=== PATIENT | female | born 1975 | race Caucasian/White ===

== ENCOUNTER → 2017-03-23 | Outpatient (CLI) | payer OTHER ==
[~2017-03-23] MED LIST: BARIUM SUSPENSION 105% (LIQUID POLIBAR PLUS) 240 ML/DOSE PO ONE; BARIUM SUSPENSION 60% (LIQUID EZ PAQUE) 240 ML DOSE PO ONE; ESCT10T PO; HYDR-3454 PO; LIRA0.6P SQ; OMEP20TA2 PO; SCR1T1 PO
--- NOTE | 2017-03-23 11:05 | Diagnostic Imaging Report ---
EXAMINATION: Barium swallow double-contrast. INDICATION: Dysphagia Fluoroscopy time: 59 seconds TECHNIQUE: Ed Tech image of the chest was performed. Subsequently, the patient was given gas forming granules for oral ingestion followed by thick and thin barium to drink. Swallowing through the esophagus was observed with fluoroscopy and overhead images, as well as multiple spot images in the upright and prone positions, were taken. FINDINGS: Ed Tech image of the chest demonstrate no significant abnormality. No significant reflux is seen during the study. Normal motility seen. The esophagus is normal in caliber and contour. There is no mucosal abnormality, diverticulum or filling defect to suggest a mass. There is no hiatal hernia demonstrated. IMPRESSION: Unremarkable barium swallow. Dictated by: Dictated on workstation # [id number]
== END ==
LOC: RAD 09:52
PROVIDERS: ATTEND Family Medicine
DX: R07.89 Other chest pain (principal)
CPT/HCPCS: 74220

== ENCOUNTER 2019-02-21 10:30 | Outpatient (CLI) | payer OTHER ==
[~2019-02-21] VITALS: Ht 167.6 cm; Wt 97.5 kg
[~2019-02-21 10:30] MED LIST changes: -BARIUM SUSPENSION 105% (LIQUID POLIBAR PLUS) 240 ML/DOSE PO ONE; -BARIUM SUSPENSION 60% (LIQUID EZ PAQUE) 240 ML DOSE PO ONE
[2019-02-21] MEDS ORDERED: LEVO50TA6 PO (11:50)
[2019-02-21] MEDS ORDERED: NORG1TAB14 PO (11:50)
[2019-02-21] MEDS ORDERED: ATOR20TA49 PO (11:50)
[2019-02-21] MEDS ORDERED: OMEP40CA36 PO (11:50)
[2019-02-21] MEDS ORDERED: ESCI20TA45 PO (11:50)
[2019-02-21] MEDS ORDERED: METF-397 PO (11:50)
[2019-02-21] MEDS ORDERED: DOCU100T7 PO (11:50)
[2019-02-21] MEDS ORDERED: IBUP-1780 PO (11:50)
== END 2019-02-21 11:51 | disposition home or self-care (01) ==
LOC: PREOP 10:30
PROVIDERS: ATTEND Surgery
DX: Z01.818 Encounter for other preprocedural examination (principal)

== ENCOUNTER 2019-02-25 07:04 | Day surgery (SDC) | payer OTHER ==
[2019-02-25] VITALS (7 sets, daily range): BP systolic 108–133; BP diastolic 55–65
[~2019-02-25] VITALS: Ht 165.1 cm; Wt 97.7 kg
[~2019-02-25 07:04] MED LIST changes: +ATOR20TA49 PO; +DOCU100T7 PO; +ESCI20TA45 PO; +IBUP-1780 PO; +LEVO50TA6 PO; +METF-397 PO; +NORG1TAB14 PO; +OMEP40CA36 PO
[2019-02-25] MEDS ORDERED: LACTATED RINGERS 1,000 ML IV ONE (07:17)
[2019-02-25] MEDS ORDERED: LACTATED RINGERS 1,000 ML IV STA (07:20)
[2019-02-25] MEDS ORDERED: HURRICAINE EXT TUBE (BENZOCAINE) XX PRN (07:30)
[2019-02-25] MEDS ORDERED: MIDAZOLAM 2 MG/2 ML (VERSED) VIAL ONE (07:31)
[2019-02-25] MEDS ORDERED: PROPOFOL INJECTION 50 ML IV ONE (07:31)
[2019-02-25] MEDS ORDERED: HURRICAINE EXT TUBE (BENZOCAINE) ONE (07:39)
--- NOTE | 2019-02-25 07:48 | Progress Note-Pre Operative ---
Pre-Operative Progress Note H&P Reviewed The H&P was reviewed, patient examined and no changes noted. Time Seen by Provider: 07:36 Date H&P Reviewed: Feb 25, 2019 Time H&P Reviewed: 07:37 Pre-Operative Diagnosis: Rectal Bleed, Chronic Gastritis QUYNH VILLA DO Feb 25, 2019 07:48
--- NOTE | 2019-02-25 08:23 | Progress Note-Post Operative ---
Post-Operative Progess Note Surgeon (s)/Associate Professor Of Mathematics (s) Surgeon QUYNH VILLA DO Associate Professor Of Mathematics: Carmenza Rosenthal Pre-Operative Diagnosis Rectal Bleed, Chronic Gastritis Post-Operative Diagnosis Gastritis Hiatal Hernia Polyp Diverticula Internal Hemorrhoids Procedure & Operative Findings Date of Procedure 02/25/19 Procedure Performed/Findings EGD with bx Colon with snare Anesthesia Type IV sedation by CHIEF DESIGN BRANCH Estimated Blood Loss Estimated blood loss (mL): scant Specimens/Packing Specimens Removed antral bx body of stomach bx GE jxn bx Asc colon polyp QUYNH VILLA DO Feb 25, 2019 08:23
--- NOTE | 2019-02-25 08:24 | Endoscopy Discharge Instruct ---
Endo Procedure/Findings Findings 1.: Hiatal Hernia, Gastritis 2.: Polyp 3.: Diverticulosis 4.: Internal Hemorrhoids Discharge Instructions - Activity: You might feel a little sleepy until tomorrow. This is due to the medicine you received to relax you. Until tomorrow, you should: NOT drive a car, operate machinery or power tools. NOT drink any alcoholic beverages. NOT make any important decisions or sign importortant papers. Do not return to work until tomorrow, unless otherwise instructed. Resume previous activities tomorrow. Diet: Start by taking liquids. If you tolerate liquids, advance to solid food. make an appointment for one week. Notify Physician - If you experience excessive bleeding, unusual abdominal pain, fever, or chest pain, contact your doctor immediately. QUYNH VILLA DO Feb 25, 2019 08:24
--- NOTE | 2019-02-25 15:39 | Anesthesia-General Post-Op ---
MAC Patient Condition Mental Status/LOC: Same as Preop Cardiovascular: Satisfactory Nausea/Vomiting: Absent Respiratory: Satisfactory Pain: Controlled Complications: Absent Post Op Complications Complications None Follow Up Care/Instructions Patient Instructions None needed. Anesthesiology Discharge Order Discharge Order Patient is doing well, no complaints, stable vital signs, no apparent adverse anesthesia problems. No complications reported per nursing. JESS MCCARTHY CRNA Feb 25, 2019 15:38
--- NOTE | 2019-02-25 22:06 | OPERATIVE REPORT ---
DATE OF SERVICE: PREOPERATIVE DIAGNOSES: 1. Chronic gastritis. 2. Rectal bleed. POSTOPERATIVE DIAGNOSES: 1. Gastritis. 2. Hiatal hernia. 3. Colon polyp. 4. Diverticula. 5. Internal hemorrhoids. PROCEDURE: 1. EGD with biopsy. 2. Colonoscopy with snare polypectomy. SURGEON: Dawood Edgar DO. STENCIL MAKER: Carmenza Pineda MS3. ANESTHESIA: IV sedation by the PELLETIZER. SPECIMEN: One biopsy from the antrum, one biopsy from body of stomach, one biopsy from the GE junction and then ascending colon polyp. BLOOD LOSS: Scant. FLUIDS: Per anesthesia. POSTOPERATIVE CONDITION: Stable. INDICATION FOR PROCEDURE: The patient is a 44-year-old female who has chronic gastritis and has noticed some rectal bleeding, needs a workup. FINDINGS: The patient had some gastritis and then noted a hiatal hernia in the colon, found an ascending colon polyp, some diverticula and some internal hemorrhoids. PROCEDURE NOTE: After informed consent was obtained, the patient was brought to the endoscopy suite, placed in the bed in left lateral decubitus position. She was administered IV sedation by the PELLETIZER who monitored her vitals the entire time, heart rate, blood pressure and pulse ox and the scope was inserted down the mouth through the esophagus into the stomach, pushed in the duodenum. Duodenum looked okay. Pulled back, looked like mild gastritis in the antrum, did a biopsy here, retroflexed the scope, saw a small hiatal hernia, took a picture of this and then did biopsy of the body of stomach, could also see some what looked like gastric fundic polyps, took a picture of this, pulled back the scope into the esophagus, took a biopsy of the GE junction and then suctioned the air out of the stomach and pulled the scope up the esophagus and out the mouth. Switched camera, switched gloves, went down below and started the colonoscopy, pushed the scope in, on the way in, noted some diverticula, took a picture and then pushed all the way to the cecum about [address] in, in the ascending colon, saw a polyp, did a snare polypectomy of this and then continued to the cecum, took a picture of appendiceal orifice, noted the ileocecal valve and able to get into the small intestine, took a picture and then slowly withdrew the scope, insufflating to look circumferentially at the botello starting in the cecum, up the ascending colon to the hepatic flexure, then down the transverse colon to splenic flexure into the descending colon into the sigmoid and finally into the rectum, retroflexed the rectal vault, saw some internal hemorrhoids, took a picture of this and then removed the scope. The patient tolerated the procedure, recovered in endoscopy suite. Job ID: [id number] DocumentID: [id number] Dictated Date: 02/25/2019 17:53:34 Batch Unit Treater Date: 02/25/2019 22:05:48 Dictated By: DO LAURIE MARTINEZ
== END 2019-02-25 09:14 | disposition home or self-care (01) ==
LOC: ENDO 07:04
PROVIDERS: ATTEND Surgery
DX: K29.50 Unspecified chronic gastritis without bleeding (principal); D12.2 Benign neoplasm of ascending colon; K44.9 Diaphragmatic hernia without obstruction or gangrene; K57.30 Diverticulosis of large intestine without perforation or abscess without bleeding; K64.8 Other hemorrhoids; E11.9 Type 2 diabetes mellitus without complications; E03.9 Hypothyroidism, unspecified; K21.9 Gastro-esophageal reflux disease without esophagitis; K58.9 Irritable bowel syndrome, unspecified; Z90.49 Acquired absence of other specified parts of digestive tract; Z88.2 Allergy status to sulfonamides; Z88.1 Allergy status to other antibiotic agents; Z86.010 Personal history of colon polyps
CPT/HCPCS: 82962; 84703

== ENCOUNTER → 2019-04-25 | Outpatient (CLI) | payer OTHER ==
[~2019-04-25] MED LIST changes: +GADOBUTROL 15 MMOL/15 ML (GADAVIST) VIAL IV ONE
--- NOTE | 2019-04-25 16:36 | Diagnostic Imaging Report ---
EXAMINATION: MRI of the abdomen with and without contrast. TECHNIQUE: Multiplanar, multisequence MR images of the abdomen were obtained with and without intravenous contrast. HISTORY: LIVER MASS COMPARISON: Comparison is 01/06/2015. FINDINGS: The liver is steatotic. No suspicious liver lesions are seen. A cyst is seen near the gallbladder fossa. No surface nodularity. Gallbladder is absent. There is no biliary ductal dilation. Pancreas is normal. Spleen is normal. Adrenal glands are normal. Kidneys are normal without hydronephrosis. Visualized bowel is normal. No lymphadenopathy is seen. Lung bases are clear. No osseous lesions are seen. IMPRESSION: 1. Steatotic liver without suspicious lesion. The abnormality on prior CT was likely focal fat deposition at the gallbladder fossa. Dictated by: Dictated on workstation # [id number]
== END ==
LOC: RAD 15:13
PROVIDERS: ATTEND Family Medicine
DX: K76.0 Fatty (change of) liver, not elsewhere classified (principal)
CPT/HCPCS: 74183

== ENCOUNTER → 2020-07-24 | Outpatient (CLI) | payer OTHER ==
[~2020-07-24] MED LIST changes: +ESCI20TA39 PO; -ESCI20TA45 PO; -GADOBUTROL 15 MMOL/15 ML (GADAVIST) VIAL IV ONE; +OMEP40CA27 PO; -OMEP40CA36 PO
--- NOTE | 2020-07-24 12:46 | Diagnostic Imaging Report ---
EXAM: Digital mammogram, bilateral screening. This study was compared to the prior exam of 11/07/2014. At this time, there are no current complaints. FINDINGS: There are scattered fibroglandular densities in both breasts which could obscure a lesion. Overall, there does not appear to have been any significant change when compared to the prior exam. There is no primary or secondary sign of malignancy noted. IMPRESSION: 1. There is no evidence for malignancy. 2. The patient should have her annual bilateral screening mammogram on schedule in July of 2021. ACR category 1 ACR BI-RADS Category 1: Negative. Result letter will be mailed to the patient. Note: At least 10% of breast cancer is not imaged by mammography. Dictated by: Dictated on workstation # [id number]
== END ==
LOC: RAD 10:05
PROVIDERS: ATTEND Nurse Practitioner Family
DX: Z12.31 Encounter for screening mammogram for malignant neoplasm of breast (principal)
CPT/HCPCS: 77063; 77067

== ENCOUNTER 2020-08-27 10:20 | Emergency (ER) | payer OTHER ==
[~2020-08-27] VITALS: Ht 167.7 cm; Wt 94.3 kg
--- NOTE | 2020-08-27 10:41 | ED Abdominal Pain ---
General Stated Complaint: UPPER ABD PAIN History of Present Illness Date Seen by Provider: Aug 27, 2020 Time Seen by Provider: 10:41 Initial Comments 45-year-old female presents with epigastric and right upper quadrant pain. Patient reports that it started yesterday afternoon and has progressively worsened. Patient was seen in outpatient clinic/urgent care. She had a negative right upper quadrant ultrasound but was extremely tender. She has had a previous cholecystectomy. The pain does radiate into her back and a little bit up into her left arm and neck. Patient reports that it is gotten significantly worse since last night. Patient denies any fevers, chills, nausea or vomiting. Patient with no other systemic complaints. Allergies and Home Medications Allergies Coded Allergies: No Known Drug Allergies (Unverified , 01/25/14) Home Medications Atorvastatin Calcium 20 Mg Tablet, 20 MG PO HS, (Reported) Docusate Sodium 100 Mg Tablet, 100 MG PO HS, (Reported) Escitalopram Oxalate 20 Mg Tablet, 20 MG PO DAILY, (Reported) Ibuprofen 800 Mg Tablet, 800 MG PO HS, (Reported) Levothyroxine Sodium 50 Mcg Tablet, 50 MCG PO DAILY, (Reported) Metformin HCl 500 Mg Tablet, 500 MG PO BID, (Reported) Norgestimate-Ethinyl Estradiol 1 Each Tablet, 1 EACH PO DAILY, (Reported) Omeprazole 40 Mg Capsule.dr, 40 MG PO DAILY, (Reported) Sucralfate 1 Gm Tablet, 1 GM PO ACHS Prescribed by: ELIZABETH SEAMAN on 08/27/20 2560 Patient Home Medication List Home Medication List Reviewed: Yes Review of Systems Review of Systems Constitutional: No chills, No fever Respiratory: Denies Cough, Denies Shortness of Air Cardiovascular: Denies Chest Pain, Denies Irregular Heart Rate Gastrointestinal: See HPI, Abdominal Pain; Denies Nausea, Denies Vomiting Genitourinary: No Symptoms Reported Musculoskeletal: no symptoms reported Skin: no symptoms reported Psychiatric/Neurological: No Symptoms Reported Past Nbggfhd-Vrvlui-Qgewoc Hx Past Med/Social Hx: Reviewed Nursing Past Med/Soc Hx Patient Social History Type Used: Cigarettes Immunizations Up To Date Tetanus Booster (TDap): Less than 5yrs Date of Pneumonia Vaccine: Jan 11, 2004 Past Medical History Surgeries: Yes (L SHOULDER SCOPE, d&c, breast reduction, R leg vein stripping) Section, Gallbladder Respiratory: No Cardiac: No Neurological: No Reproductive Disorders: No Female Reproductive Disorders: Denies Sexually Transmitted Disease: No HIV/AIDS: No Genitourinary: No Gastrointestinal: Yes Gastroesophageal Reflux, Chronic Diarrhea, Irritable Bowel Musculoskeletal: No Endocrine: Yes Hypothyroidsim, Diabetes, Non-Insulin dep HEENT: No Cancer: No Psychosocial: Yes Depression Integumentary: No Blood Disorders: No Adverse Reaction/Blood Tranf: No Family Medical History Alcoholism 19 FATHER Arthritis 19 FATHER Colon cancer 19 FATHER Dementia 19 FATHER Diabetes mellitus 19 FATHER Thyroid disease 19 MOTHER Physical Exam Vital Signs Vital Signs - First Documented 08/27/20 08/27/20 10:39 11:10 Temp 36.4 Pulse 87 Resp 16 B/P (MAP) 151/85 (107) Pulse Ox 95 O2 Delivery Room Air O2 Flow Rate 2.00 Capillary Refill : Height/Weight/BMI Height: 5'6.00" Weight: 215lbs. 0.0oz. 97.677003zs; 35.84 BMI Method:Stated General Appearance: mild distress HEENT: PERRL/EOMI Neck: full range of motion, supple Respiratory: normal breath sounds, no respiratory distress Cardiovascular: normal peripheral pulses, regular rate, rhythm Gastrointestinal: soft, tenderness (Epigastric and right upper quadrant) Extremities: non-tender Neurologic/Psychiatric: no motor/sensory deficits, alert, normal mood/affect, oriented x 3 Skin: normal color, warm/dry Progress/Results/Core Measures Results/Orders Lab Results Laboratory Tests Test 08/27/20 10:50 Range/Units White Blood Count 9.1 4.3-11.0 10^3/uL Red Blood Count 4.25 3.80-5.11 10^6/uL Hemoglobin 10.8 L 11.5-16.0 g/dL Hematocrit 34 L 35-52 % Mean Corpuscular Volume 79 L 80-99 fL Mean Corpuscular Hemoglobin 25 25-34 pg Mean Corpuscular Hemoglobin Concent 32 32-36 g/dL Red Cell Distribution Width 15.9 H 10.0-14.5 % Platelet Count 207 130-400 10^3/uL Mean Platelet Volume 10.4 9.0-12.2 fL Immature Granulocyte % (Auto) 0 % Neutrophils (%) (Auto) 67 42-75 % Lymphocytes (%) (Auto) 26 12-44 % Monocytes (%) (Auto) 6 0-12 % Eosinophils (%) (Auto) 0 0-10 % Basophils (%) (Auto) 0 0-10 % Neutrophils # (Auto) 6.1 1.8-7.8 10^3/uL Lymphocytes # (Auto) 2.4 1.0-4.0 10^3/uL Monocytes # (Auto) 0.6 0.0-1.0 10^3/uL Eosinophils # (Auto) 0.0 0.0-0.3 10^3/uL Basophils # (Auto) 0.0 0.0-0.1 10^3/uL Immature Granulocyte # (Auto) 0.0 0.0-0.1 10^3/uL Sodium Level 141 135-145 MMOL/L Potassium Level 3.3 L 3.6-5.0 MMOL/L Chloride Level 104 98-107 MMOL/L Carbon Dioxide Level 24 21-32 MMOL/L Anion Gap 13 5-14 MMOL/L Blood Urea Nitrogen 10 7-18 MG/DL Creatinine 0.71 0.60-1.30 MG/DL Estimat Glomerular Filtration Rate > 60 BUN/Creatinine Ratio 14 Glucose Level 172 H 70-105 MG/DL Calcium Level 8.7 8.5-10.1 MG/DL Corrected Calcium 8.7 8.5-10.1 MG/DL Total Bilirubin 0.8 0.1-1.0 MG/DL Aspartate Amino Transf (AST/SGOT) 47 H 5-34 U/L Alanine Aminotransferase (ALT/SGPT) 50 0-55 U/L Alkaline Phosphatase 104 40-136 U/L C-Reactive Protein High Sensitivity 1.17 H 0.00-0.50 MG/DL Total Protein 7.2 6.4-8.2 GM/DL Albumin 4.0 3.2-4.5 GM/DL Amylase Level 12 L 25-125 U/L Lipase 12 8-78 U/L My Orders Orders - SEAMAN,ELIZABETH L DO Amylase (08/27/20 10:45) Cbc With Automated Diff (08/27/20 10:45) Comprehensive Metabolic Panel (08/27/20 10:45) Hs C Reactive Protein (08/27/20 10:45) Lipase (08/27/20 10:45) Famotidine Tablet (Pepcid Tablet) (08/27/20 10:45) Lactated Ringers (Lr 1000 Ml Iv Solution (08/27/20 10:45) Ed Iv/Invasive Line Start (08/27/20 10:45) Fentanyl Injection (Sublimaze Injection (08/27/20 10:45) Ct Abdomen/Pelvis W (08/27/20 11:28) Iohexol Injection (Omnipaque 350 Mg/Ml 1 (08/27/20 11:45) Received Contrast (Hold Metformin- Contr (08/27/20 11:45) Sodium Chloride Flush (Catheter Flush Sy (08/27/20 11:45) Ns (Ivpb) (Sodium Chloride 0.9% Ivpb Bag (08/27/20 11:45) Sucralfate Tablet (Carafate Tablet) (08/27/20 13:30) Medications Given in ED Current Medications Medications Dose Ordered Sig/Luis Antonio Route Start Time Stop Time Status Last Admin Dose Admin Iohexol 100 ml ONCE ONCE IV 08/27/20 11:45 08/27/20 11:46 DC 08/27/20 12:06 99 ML Sodium Chloride 100 ml ONCE ONCE IV 08/27/20 11:45 08/27/20 11:46 DC 08/27/20 12:06 80 ML Sucralfate 1 gm ONCE ONCE PO 08/27/20 13:30 08/27/20 13:31 DC 08/27/20 13:52 1 GM Vital Signs/I&O 08/27/20 08/27/20 10:39 11:10 Temp 36.4 Pulse 87 Resp 16 B/P (MAP) 151/85 (107) Pulse Ox 95 93 O2 Delivery Room Air Nasal Cannula O2 Flow Rate 2.00 Progress Progress Note : Progress Note Patient with negative ultrasound done at urgent care. Patient's labs do not show any significant abnormalities with her amylase lipase or other type of infection. CT abdomen pelvis was obtained that showed no acute epigastric or right upper quadrant pain. Discussed with patient I suspect she has some gastritis. We will give her some Carafate and prescribe her some Carafate. Recommend she add Pepcid in addition to her 40 mg omeprazole she takes daily. She should also follow-up with her primary care provider to arrange for possible EGD. Patient will be discharged home in stable condition Departure Impression Primary Impression: Gastritis Qualified Codes: K29.70 - Gastritis, unspecified, without bleeding Disposition: 01 HOME, SELF-CARE Condition: Stable Departure-Patient Inst. Referrals: BO LEY (PCP/Family) Primary Care Physician Patient Instructions: Gastritis Scripts Sucralfate (Carafate) 1 Gm Tablet 1 GM PO ACHS, #100 TAB Prov: ELIZABETH SEAMAN DO 08/27/20 ELIZABETH SEAMAN DO Aug 27, 2020 10:41
[2020-08-27] MEDS ORDERED: LACTATED RINGERS 1,000 ML IV STA (10:45)
[2020-08-27] MEDS ORDERED: FAMOTIDINE 20 MG (PEPCID) TABLET PO STA (10:45)
[2020-08-27] MEDS ORDERED: fentaNYL INJ 100 MCG/2 ML AMP IVP STA (10:45)
[2020-08-27 10:59] LABS: BASOPHILS % (AUTO) 0 % (0-10); EOSINOPHILS % (AUTO) 0 % (0-10); HEMATOCRIT 34 % (35-52); HEMOGLOBIN 10.8 g/dL (11.5-16.0); LYMPHOCYTES # (AUTO) 2.4 10^3/uL (1.0-4.0); LYMPHOCYTES % (AUTO) 26 % (12-44); MEAN CORPUSCULAR HEMOGLOBIN 25 pg (25-34); MEAN CORPUSCULAR HGB CONC 32 g/dL (32-36); MEAN CORPUSCULAR VOLUME 79 fL (80-99); MEAN PLATELET VOLUME 10.4 fL (9.0-12.2); MONOCYTES # (AUTO) 0.6 10^3/uL (0.0-1.0); MONOCYTES % (AUTO) 6 % (0-12); NEUTROPHILS # (AUTO) 6.1 10^3/uL (1.8-7.8); NEUTROPHILS % (AUTO) 67 % (42-75); PLATELET COUNT 207 10^3/uL (130-400); WHITE BLOOD COUNT 9.1 10^3/uL (4.3-11.0)
[2020-08-27 11:20] LABS: ALANINE AMINOTRANSFERASE 50 U/L (0-55); ALKALINE PHOSPHATASE 104 U/L (40-136); AMYLASE 12 U/L (25-125); BILIRUBIN,TOTAL 0.8 MG/DL (0.1-1.0); BUN/CREATININE RATIO 14; CALCIUM 8.7 MG/DL (8.5-10.1); CARBON DIOXIDE 24 MMOL/L (21-32); CHLORIDE 104 MMOL/L (98-107); CREATININE SERUM 0.71 MG/DL (0.60-1.30); GFR ESTIMATED > 60; GLUCOSE 172 MG/DL (70-105); LIPASE 12 U/L (8-78); POTASSIUM 3.3 MMOL/L (3.6-5.0); SODIUM 141 MMOL/L (135-145); TOTAL PROTEIN 7.2 GM/DL (6.4-8.2)
[2020-08-27] MEDS ORDERED: HOLD METFORMIN - RECEIVED CONTRAST 20 ML VIAL IV SCH (11:45)
[2020-08-27] MEDS ORDERED: NS 100 ML (IVPB) BAG IV ONE (11:45)
[2020-08-27] MEDS ORDERED: CATHETER FLUSH 10 ML SYR IV PRN (11:45)
[2020-08-27] MEDS ORDERED: IOHEXOL 350 MG/ML 100 ML (OMNIPAQUE 350) VIAL IV ONE (11:45)
--- NOTE | 2020-08-27 13:16 | Diagnostic Imaging Report ---
PROCEDURE: CT abdomen and pelvis with contrast. TECHNIQUE: Multiple contiguous axial images were obtained through the abdomen and pelvis after administration of intravenous contrast. Auto Exposure Controls were utilized during the CT exam to meet ALARA standards for radiation dose reduction. All CT scans use one or more of the following dose optimizing techniques: automated exposure control, MA and/or KvP adjustment based on patient size and exam type or iterative reconstruction. INDICATION: Substernal chest pain radiating into the neck and back sensation of fullness. Compared with CT abdomen 12/29/2014. Lung bases demonstrate small approximately 1 cm bilateral pleural effusions nonloculated. Some prominence of the left lower lobe pulmonary venous structures as well as smooth septal thickening and groundglass densities suspicious for mild interstitial edema correlate for failure or hypervolemia. No basilar pneumothorax. Stomach was nondistended. The duodenum nondilated. There is no evidence for small or large bowel obstruction. No perienteric or pericolonic edema. There was no ascites. No free air or findings of viscus perforation. There is fatty infiltration of the liver without bile duct dilatation. The gallbladder surgically absent. The pancreas unremarkable. Kidneys are unobstructed. The spleen and adrenals are negative. There is a large right adnexal cyst presumed ovarian showing no soft tissue component or enhancing element measures 6.1 cm. The left adnexa, the uterus and urinary bladder are normal. No focal inflammatory process. The bony structures nonacute. IMPRESSION: Nonobstructive abdomen and pelvis. No ascites or fluid collection. No focal inflammatory process. Fatty liver without evidence for acute pancreatitis. Large right adnexal cyst. While it shows no complexity at CT given its size follow-up with nonemergent outpatient pelvic ultrasound recommended. No CT findings to suggest its torsion. Small pleural effusions and basilar vascular congestion and probable basilar interstitial edema. Dictated by: Dictated on workstation # [id number]
[2020-08-27] MEDS ORDERED: SUCRALFATE 1 GM (CARAFATE) TAB PO ONE (13:30)
[2020-08-27] MEDS ORDERED: SUCR1TAB36 PO (13:34)
[2020-08-27 14:00] VITALS: BP 124/70
== END 2020-08-27 14:00 | disposition home or self-care (01) ==
LOC: EDUNIT# 10:20 → ER 10:24
DX: K29.70 Gastritis, unspecified, without bleeding (principal); I10 Essential (primary) hypertension; E03.9 Hypothyroidism, unspecified; K21.9 Gastro-esophageal reflux disease without esophagitis; F32.9 Major depressive disorder, single episode, unspecified; E11.9 Type 2 diabetes mellitus without complications; Z80.0 Family history of malignant neoplasm of digestive organs; Z82.61 Family history of arthritis; Z79.84 Long term (current) use of oral hypoglycemic drugs; Z79.890 Hormone replacement therapy
CPT/HCPCS: 36415; 74177; 80053; 82150; 83690; 85025; 86141

== ENCOUNTER → 2020-11-20 | Outpatient (CLI) | payer OTHER ==
[~2020-11-20] MED LIST changes: +SUCR1TAB36 PO
--- NOTE | 2020-11-20 12:57 | Diagnostic Imaging Report ---
PROCEDURE: MRI right joint upper extremity without contrast. TECHNIQUE: Multiplanar, multisequence non contrast-enhanced MRI of the right upper extremity was accomplished. INDICATION: Right shoulder pain for six months. No known injury. COMPARISON: None FINDINGS: No acute fracture or dislocation is seen in the right shoulder. Alignment is normal. There is no significant joint effusion. There is moderate tendinosis at the anterior supraspinatus tendon. There is no high-grade partial-thickness or full-thickness tear seen in the right rotator cuff. There is a [id number] amount of fluid in the subacromial subdeltoid bursa. The long head of the biceps tendon is normal in course and signal. The glenoid labrum is suboptimally evaluated in the absence of intra-articular contrast but no tear or paralabral cyst is seen. The acromion has a curved undersurface without hooking. The coracoclavicular and coracoacromial ligaments are intact. There are mild degenerative changes in the acromioclavicular joint. Soft tissues about the right shoulder are otherwise unremarkable. There is no muscular atrophy. IMPRESSION: 1. Tendinosis in the right supraspinatus tendon with no high-grade partial-thickness or full-thickness rotator cuff tear. 2. Mild degenerative changes in the acromioclavicular joint. Moderate subacromial subdeltoid bursitis. Dictated by: Dictated on workstation # [id number]
== END ==
LOC: RAD 10:48
PROVIDERS: ATTEND Nurse Practitioner Family
DX: M19.011 Primary osteoarthritis, right shoulder (principal); M67.813 Other specified disorders of tendon, right shoulder; M75.51 Bursitis of right shoulder
CPT/HCPCS: 73221